=== PATIENT | female | born 1965 | race African-American/Black ===

== ENCOUNTER 2018-03-22 18:50 | Emergency (ER) | payer OTHER ==
[~2018-03-22] VITALS: Ht 162.6 cm; Wt 59.0 kg
--- NOTE | 2018-03-22 19:41 | Emergency Room Report ---
History of Present Illness General Chief Complaint: Edema Source: Patient Present Illness HPI 52 YO Female presents to the ED c/o bilateral foot swelling with some pain. x 2 days. left foot more swollen than the right, no trauma or fall. no hx of htn. no recent travel however pt. has been sleeping out of her car. Denies hx of HTN , Vascular disease, heart Disease. Pt denies estrogen replacement, she reports being a smoker. Denies bruises, skin discoloration, or changes in temperature to the extremities. Pt. concerned for blood clot. denies hx of DVT. Allergies: Coded Allergies: No Known Allergies (Unverified , 03/22/18) Patient History Past Medical History: see triage record Past Surgical History: none Pertinent Family History: none Last Menstrual Period: none Now: No : 5 Para: 4 Reviewed Nursing Documentation: PMH: Agreed; PSxH: Agreed Nursing Documentation-PMH Past Medical History: No Stated History Review of Systems All Other Systems: negative except mentioned in HPI Physical Exam Vital Signs Date Time Temp Pulse Resp B/P (MAP) Pulse Ox O2 Delivery O2 Flow Rate FiO2 03/22/18 19:03 98.4 63 15 142/83 97 Room Air 98.4 Sp02 EP Interpretation: reviewed, normal General Appearance: no apparent distress, alert, GCS 15, non-toxic Head: normocephalic, atraumatic Eyes: bilateral eye normal inspection, bilateral eye PERRL ENT: hearing grossly normal, normal voice Neck: full range of motion Respiratory: chest non-tender, lungs clear, normal breath sounds, speaking full sentences Cardiovascular #1: regular rate, rhythm, edema - 1+ non pitting on the right ankle, 2+ non pitting on the left foot and ankle. Musculoskeletal: back normal, gait/station normal, normal range of motion, non- tender, no calf tenderness Neurologic: alert, oriented x3, responsive, motor strength/tone normal, sensory intact, normal gait, speech normal, grossly normal Psychiatric: judgement/insight normal Skin: normal color, no rash, warm/dry, well hydrated Medical Decision Making PA Attestation Dr. Duckworth is my supervising Physician whom patient management has been discussed with. Diagnostic Impression: Primary Impression: Mild peripheral edema ER Course 52 YO Female presents to the ED c/o bilateral foot swelling with some pain. x 2 days. left foot more swollen than the right, no trauma or fall. no hx of htn. no recent travel however pt. has been sleeping out of her car. Denies hx of HTN , Vascular, renal, liver or heart Disease. Pt denies estrogen replacement, she reports being a smoker. Denies bruises, skin discoloration, or changes in temperature to the extremities. Pt. concerned for blood clot. denies hx of DVT. Ddx considered but are not limited to Cellulitis, DVT, varicose vein, PAD, Venous insufficiency Vital signs: are WNL, pt. is afebrile H&PE are most consistent with peripheral edema however due to unequal DORIAN will r/o DVT. pt. also has RF. ORDERS: LE duplex U/s to R/O dvt: ED INTERVENTIONS: -Lasix PO x 1 D/w pt. will d/c with rx for small quantity of diuretics which are also available OTC. will give list of [facility] resources, free/reduced cost clinics and ED return precautions for worsening or new symptoms. DISCHARGE: At this time pt. is stable for d/c to home. Will provide printed patient care instructions, and any necessary prescriptions. Care plan and follow up instructions have been discussed with the patient prior to discharge. CT/MRI/US Diagnostic Results CT/MRI/US Diagnostic Results : Imaging Test Ordered: Venous Duplex US of left lower extremity Impression Negative for DVT. Last Vital Signs Date Time Temp Pulse Resp B/P (MAP) Pulse Ox O2 Delivery O2 Flow Rate FiO2 03/22/18 19:10 63 15 Room Air 03/22/18 19:03 98.4 142/83 97 98.4 Disposition: HOME, SELF-CARE Condition: Stable Scripts Pam[place]rom (DIURETIC SOFTGEL) 50 Mg Capsule 50 MG PO TID for 5 Days, #15 CAP Prov: Genoveva Stephens 03/22/18 Patient Instructions: Peripheral Edema Additional Instructions: Take medications as directed. Follow up with a Primary Care Provider in 3-5 days, even if your symptoms have resolved. --Please review list of primary care clinics, if you do not already have a primary care provider Return sooner to ED if new symptoms occur, or current symptoms become worse. - Please note that this Emergency Department Report was dictated using [employer] book designer technology software, occasionally this can lead to erroneous entry secondary to interpretation by the dictation equipment. Genoveva Stephens Mar 22, 2018 19:41
[2018-03-22 20:00] VITALS: BP 138/81
[2018-03-22 20:40] VITALS: BP 138/81
[2018-03-22] MEDS ORDERED: [UNRECOGNIZED DRUG - OTHER] PO (21:24)
--- NOTE | 2018-03-29 14:16 | Diagnostic Imaging Report ---
APPROVED REPORT CPT Code: 99496 Present Symptoms Lower Extremity Edema: LEFT LEG: Venous imaging reveals a patent deep venous system. There is no evidence of thrombus within the femoral, popliteal or tibial segments. The greater saphenous vein is also within normal limits. Doppler indicates normal spontaneous flow within these segments.
== END 2018-03-22 22:10 | disposition home or self-care (01) ==
LOC: EMR 22:09
DX: R60.0 Localized edema (principal)
CPT/HCPCS: 93971; 99284

== ENCOUNTER 2020-07-18 20:23 | Emergency (ER) | payer MEDICAID, OTHER ==
[~2020-07-18] VITALS: Ht 162.6 cm; Wt 68.0 kg
[~2020-07-18 20:23] MED LIST: [UNRECOGNIZED DRUG - OTHER] PO
--- NOTE | 2020-07-18 20:45 | NUR ---
Note deana in EDM - 07/18/20 at 2113 by [email or web address] ER DISCHARGE NOTE: Patient is cleared to be discharged per ERMD, pt is aox4, on room air, with stable vital signs. pt was given dc and prescription instructions, pt was able to verbalize understanding, pt id band removed. pt is able to ambulate with steady gait. pt took all belongings.
--- NOTE | 2020-07-18 20:46 | NUR ---
ED Nurse Note: Patient walked into the ED from home due to contact lense stucked in right eye onset 3 days ago. Visual acuity 20/30 on right eye. Denies injury/trauma, no loss of vision noted.
--- NOTE | 2020-07-18 20:48 | NUR ---
ED Nurse Note: ERMd at bedside
[2020-07-18 21:00] VITALS: BP 135/78
--- NOTE | 2020-07-18 21:00 | NUR ---
ER DISCHARGE NOTE: Patient is cleared to be discharged per ERMD, pt is aox4, on room air, with stable vital signs. pt was given dc and prescription instructions, pt was able to verbalize understanding, pt id band removed. pt is able to ambulate with steady gait. pt took all belongings.
--- NOTE | 2020-07-18 22:07 | Emergency Room Report ---
History of Present Illness General Chief Complaint: Eye Problems Source: Patient Present Illness HPI Patient is a 55-year-old female presents for increased right eye discomfort. She feels that contact lens may be still present in her eye. Patient had recently started wearing contact lenses. Denies any foreign body sensation. Has any eye discharge. Had been attempting to remove it without any success. Allergies: Coded Allergies: No Known Allergies (Unverified , 03/22/18) COVID-19 Screening Contact w/high risk pt: No Experienced COVID-19 symptoms?: No COVID-19 Testing performed PUMPING SUPERVISOR: No Patient History Past Medical History: see triage record Reviewed Nursing Documentation: PMH: Agreed; PSxH: Agreed Nursing Documentation-PMH Past Medical History: No Stated History Review of Systems All Other Systems: negative except mentioned in HPI Physical Exam Vital Signs Date Time Temp Pulse Resp B/P (MAP) Pulse Ox O2 Delivery O2 Flow Rate FiO2 07/18/20 20:36 98.1 77 20 135/78 (97) 96 Room Air General Appearance: well appearing, no apparent distress, alert, GCS 15 Head: normocephalic, atraumatic Eyes: bilateral eye normal inspection, bilateral eye PERRL ENT: hearing grossly normal, normal voice Neck: full range of motion, supple Respiratory: chest non-tender, lungs clear, no respiratory distress, speaking full sentences Cardiovascular #1: normal inspection, no edema Gastrointestinal: normal inspection, soft Musculoskeletal: no calf tenderness Neurologic: alert, motor strength/tone normal, configuration engineer III-XII nml as tested, oriented x3, normal gait Psychiatric: mood/affect normal Skin: no rash Medical Decision Making Diagnostic Impression: Primary Impression: Contact lens associated with adverse incident ER Course Patient presented for unable to remove contact lens. Differential diagnosis include was not limited to retained contact lens, foreign body, among others. Patient has a benign exam and does not appear to require any imaging or laboratory testing at this time. Patient was examined thoroughly and did not see any evidence of contact lens present. Patient is advised to recheck with her professional bondsman Tomorrow. she was advised to return if any worsening or other concerns. This medical record is generated with [employer] forestry aid software. There may be some forestry aid discrepancies related to use of this software Last Vital Signs Date Time Temp Pulse Resp B/P (MAP) Pulse Ox O2 Delivery O2 Flow Rate FiO2 11/23/20 21:00 98.1 20 135/78 96 Room Air 07/18/20 20:36 77 Status: improved Disposition: HOME, SELF-CARE Condition: Stable Referrals: [facility],REFERRING (PCP) Patient Instructions: Medical Screening Exam Additional Instructions: Follow up with your eye doctor for recheck. Return if any discharge or any other concerns. Kenroy Carey MD Jul 18, 2020 22:07
== END 2020-07-18 21:15 | disposition home or self-care (01) ==
LOC: EMR 20:52
DX: H44.601 Unspecified retained (old) intraocular foreign body, magnetic, right eye (principal)
CPT/HCPCS: 99281